=== PATIENT | female | born 1985 | race Two or more races ===

== ENCOUNTER 2016-12-28 21:41 | Emergency (ER) | payer MEDICAID ==
[~2016-12-28] VITALS: Ht 160 cm; Wt 62.1 kg
[2016-12-28] MEDS ORDERED: diphenhdrAMINE HCL 50 MG/1 ML VL IV ONE (22:00)
[2016-12-28] MEDS ORDERED: FAMOTIDINE (10MG/ML) 2ML VL IV ONE (22:00)
[2016-12-28] MEDS ORDERED: EPINEPHrine HCL 1 MG/1 ML AMP SC ONE (22:00)
[2016-12-28] MEDS ORDERED: methylPREDNISolone SOD SUCC 125 MG/2 ML VL IV ONE (22:00)
[2016-12-28] MEDS ORDERED: LORazepam 2MG/ML-1ML VIAL ONE (22:55)
[2016-12-28] MEDS ORDERED: LORazepam 2MG/ML-1ML VIAL IV ONE (23:15)
[2016-12-28 23:58] VITALS: BP 114/63
[2016-12-29] MEDS ORDERED: SODIUM CHLORIDE 0.9% 2,000 ML IV ONE
[2016-12-29 00:09] LABS: Basophils # (auto) 0 uL; Basophils % (auto) 0.2 % (0.0-2.0); Eosinophils # (auto) 0.1 uL; Eosinophils % (auto) 1.2 % (0.0-7.0); Hematocrit 35.1 % (36.0-46.0); Hemoglobin 11.9 g/dL (12.2-16.2); Lymphocytes # (auto) 0.6 uL; Lymphocytes % (auto) 8.3 % (10.0-50.0); Mean Corpuscular Hemoglobin 30.5 pg (28.0-32.0); Mean Corpuscular Volume 89.9 fL (80.0-100.0); Mean Platelet Volume 9.1 fL (7.4-10.4); Monocytes # (auto) 0.1 uL; Monocytes % (auto) 1.8 % (0.0-12.0); Neutrophils # (auto) 5.9 uL; Neutrophils % (auto) 88.5 % (37.0-80.0); Platelet Count (auto) 248 10^3/uL (140-450); Red Cell Distribution Width 12.1 % (11.6-16.0); SUSPECT SEE PRINTOUT; White Blood Cell 6.8 10^3/uL (4.4-10.8)
[2016-12-29 00:35] LABS: Albumin 3.3 g/dL (3.4-5.0); BUN/Creatinine Ratio 12.4; Bilirubin, Total 0.1 mg/dL (0.2-1.0); Calcium 7.7 mg/dL (8.5-10.1); Potassium 3.2 mmol/L (3.5-5.1); Total Protein 6.9 g/dL (6.4-8.2)
[2016-12-29 01:08] LABS: Platelet Estimate Adequate
[2016-12-29 01:10] LABS: RBC Morphology Normal
== END 2016-12-29 02:04 | disposition home or self-care (01) ==
LOC: ER 21:45
DX: T78.40XA Allergy, unspecified, initial encounter (principal); L29.9 Pruritus, unspecified; T78.3XXA Angioneurotic edema, initial encounter; Y92.89 Other specified places as the place of occurrence of the external cause
CPT/HCPCS: 36415; 71010; 80053; 84702; 85025; 96361; 96372; 96374; 96375; 99285; J0171; J1200; J2060; J2930; J3490

== ENCOUNTER 2016-12-31 14:07 | Emergency (ER) | payer MEDICAID ==
[~2016-12-31] VITALS: Ht 160 cm; Wt 61.2 kg
[2016-12-31 14:54] LABS: Basophils # (auto) 0.1 uL; Basophils % (auto) 0.6 % (0.0-2.0); CONDITION Y; Eosinophils # (auto) 0.2 uL; Eosinophils % (auto) 1.8 % (0.0-7.0); Hematocrit 40.8 % (36.0-46.0); Hemoglobin 13.6 g/dL (12.2-16.2); Lymphocytes # (auto) 3.1 uL; Lymphocytes % (auto) 35.5 % (10.0-50.0); Mean Corpuscular Hemoglobin 30.2 pg (28.0-32.0); Mean Corpuscular Hgb Conc. 33.3 g/dL (32.0-36.0); Mean Corpuscular Volume 90.7 fL (80.0-100.0); Mean Platelet Volume 9.2 fL (7.4-10.4); Monocytes # (auto) 0.8 uL; Monocytes % (auto) 9.3 % (0.0-12.0); Neutrophils # (auto) 4.5 uL; Neutrophils % (auto) 52.8 % (37.0-80.0); Platelet Count (auto) 403 10^3/uL (140-450); Red Cell Distribution Width 12.9 % (11.6-16.0); White Blood Cell 8.6 10^3/uL (4.4-10.8)
[2016-12-31 15:05] LABS: Albumin 3.8 g/dL (3.4-5.0); BUN/Creatinine Ratio 15.2; Potassium 3.8 mmol/L (3.5-5.1)
[2016-12-31 15:08] LABS: Bilirubin, Total 0.2 mg/dL (0.2-1.0); Total Protein 7.6 g/dL (6.4-8.2)
[2016-12-31 17:16] VITALS: BP 127/74
== END 2016-12-31 17:54 | disposition home or self-care (01) ==
LOC: ER 14:07
DX: T78.40XA Allergy, unspecified, initial encounter (principal); X58.XXXA Exposure to other specified factors, initial encounter; R53.1 Weakness
CPT/HCPCS: 36415; 80053; 85025